=== PATIENT | male | born 2000 | race Caucasian/White ===

== ENCOUNTER 2024-11-20 15:09 | Emergency (ER) | payer SELFPAY ==
[2024-11-20 15:11] VITALS: BP 152/98; PULSE 87; RESP 18; TEMP 36.4; O2SAT 100; BMI 40.4
--- NOTE | 2024-11-20 15:25 | EX.ED.DYSGE1 ---
HPI History of Present Illness Chief Complaint: Abd Pain [facility] Medical History (Updated 11/20/24 @ 15:27 by Phuong Barker) Enlargement, spleen Home Medications ?Medication ?Instructions ?Recorded ?Last Taken ?Type ondansetron 4 mg disintegrating 4 mg PO Q8H PRN PRN Nausea #10 tabs 11/20/24 Unknown Rx tablet pantoprazole 20 mg tablet,delayed 20 mg PO DAILY #60 tabs 11/20/24 Unknown Rx release (Protonix) sucralfate 1 gram tablet (Carafate) 1 g PO BID PRN abdominal pain #14 11/20/24 Unknown Rx tabs Allergy/AdvReac Type Severity Reaction Status Date / Time diphenhydramine (From Allergy Other Verified 11/20/24 15:11 Benadryl) naproxen Allergy Hives Verified 11/20/24 15:11 tramadol Allergy Hives Verified 11/20/24 15:11 Surgical History no surgical history Social History Smoking Status: Never smoker EXAM Physical Exam Const Vital Signs: 11/20/24 15:11 11/20/24 16:41 Temperature 97.6 F L 97.6 F L Temperature Source Oral Pulse Rate 87 87 Respiratory Rate 18 18 Blood Pressure 152/98 H 136/89 H Blood Pressure Mean 116 104 Pulse Ox 100 100 Oxygen Delivery Method Room Air MDM MDM MDM Narrative Medical decision making narrative: HISTORY OF PRESENT ILLNESS: 24year old male presents with abdominal pain. Notes symptoms have been ongoing for 2 weeks. He further states he is having 2 weeks of epigastric and left upper quadrant abdominal pain. States he has been seen multiple times at outside facility. States he was seen most recently last night and received a CT scan and a lab evaluation. He stated the doctor there told him that nothing was wrong. He asked the doctor at that time if there is anything he can take at home the doctor said no. He states he has a GI appointment in January but cannot wait that long secondary to ongoing pain. He notes he has not eaten much in the last few days. He denies pain getting worse with food. Denies alcohol use. Denies history of any abdominal surgeries. Denies vomiting. Denies fever. Denies melena or hematochezia. Denies urinary complaints. Denies chest pain or shortness of breath. Denies recent illness REVIEW OF SYSTEMS: All other systems reviewed and are negative except as noted in the history of present illness. At least 10 review of systems reviewed and are negative except as noted in history of present illness. PHYSICAL EXAM: Nursing triage notes reviewed, Vital signs reviewed Constitutional: please see [facility] HENT: MMM Eyes: Pupils equal round and reactive to light, Extraocular muscles intact Neck: No stridor, no JVD, full neck ROM Lungs: Clear to auscultation, No wheezing or rales. No increased work of breathing, no conversational dyspnea, no accessory muscle use, no nasal flaring. No respiratory distress noted Heart: Regular rate and rhythm, No murmurs, No rubs and No gallops, 2+ distal pulses (radial, femoral, posterior tibial) in all extremities Abdomen: Soft, epigastric left upper quadrant TTP, no rigidity, rebound or guarding, no obvious peritoneal signs, no palpable pulsatile abdominal masses, no auscultated abdominal bruit : No CVAT Extremities: No edema Neuro: No focal neurological deficits, cranial nerves II through XII intact, 5/5 strength in all extremities. Intact sensation to light touch in all extremities, 2+ reflexes bilateral patella tendons. Normal gait. No ataxia. Skin: No rash or lesions noted MEDICAL DECISION MAKING: Chief Complaint: abdominal pain External records reviewed: Reviewed prior imaging studies: No recent advanced imaging of the abdomen or pelvis noted in the chart Reviewed the patient's personal medical record on his cell phone. This showed a CBC, CMP, lipase, urinalysis and a CT scan was performed on 11/19/2024 at approximately 8 PM. These labs were unremarkable including for signs of systemic inflammation with no elevation his white blood cell count. He had no significant anemia. He had no elevation of his lipase to suggest pancreatitis. His urine was not infectious. His CT scan of his abdomen showed evidence of gastritis and splenomegaly Factors affecting care: none reported Social determinants of health: Denies recent alcohol use History obtained from others: none Consults: none [facility] Narrative: The patient was initially hemodynamically stable, afebrile, saturating under percent room air. Abdominal exam was benign with epigastric and left upper quadrant TTP consistent with likely gastritis. I considered the following differential diagnosis: AAA, small bowel obstruction, abdominal perforation, appendicitis, pancreatitis, hepatobiliary pathology (acute cholecystitis), mesenteric ischemia, abnormalities such as pyelonephritis, nephrolithiasis I considered obtaining a broad lab and imaging workup however the patient had a similar workup less than 24 hours ago that showed no acute findings. I do not think additional labs or images are indicated at this time. I suspect the etiology of his symptoms are related to gastritis. Provided him with symptomatic relief and the emergency room in the form of pantoprazole, Zofran, GI cocktail, Carafate. Will discharge patient with prescriptions for Protonix, Carafate and a GI follow-up return precautions were discussed. I see nothing that would suggest an acute abdomen at this time. Based on history physical exam, risk factors, my suspicion for bowel obstruction, incarcerated hernia, perforated viscus, acute cholecystitis, appendicitis is very low. There is no evidence of peritonitis sepsis or toxicity at this time. I feel the patient can be managed as an outpatient with follow-up with her/his primary physician in the next 24 to 48 hours or soon as possible. Instructions have been given for the patient to return to the ED for worsening pain, anorexia, high fevers, intractable vomiting or bleeding. The patient and/or family, caregivers express understanding. The patient and/or family, caregivers agrees with the plan. Total critical care time today provided was at least 0 minutes. This excludes separately billable procedures. Critical care time (if documented) is secondary to the patient having high probability of clinically significant/life threatening deterioration in the patient's condition which required my urgent intervention. Shared decision making: I will have a discussion with the patient and or visitors regarding risk/benefits of further testing or admission. They will be made aware of of the risk/benefits inherent in this decision they will be given the opportunity to voice understanding. Impression: 1. Epigastric abdominal pain Disposition: Discharge home Tato Caballero DO This note was generated with [employer] dictation software. It may contain incorrect words, spelling, and punctuation that were not noted in review of the chart prior to signing. Discharge Plan Triage Chief Complaint: Abd Pain ED Provider: Tato Caballero Dx/Rx/DC Orders Instructions: ED Gastritis (Adult) Prescriptions: New pantoprazole [Protonix] 20 mg tablet,delayed release (DR/EC) 20 mg PO DAILY Qty: 60 0RF ondansetron 4 mg tablet,disintegrating 4 mg PO Q8H PRN PRN (Reason: Nausea) Qty: 10 0RF sucralfate [Carafate] 1 gram tablet 1 g PO BID PRN (Reason: abdominal pain) Qty: 14 0RF Primary Care Provider: Care Physician,No Primary Referrals: Juno Vitale DO [Med Staff - Active Staff] - Activity Restrictions/Additional Instructions: Thank you for trusting us with your care today! Based on your history physical exam and lab and imaging review from your recent ER visit yesterday you are likely suffering from gastritis. There is inflammation of the stomach. This is treated with oral acid reducing medicines such as Protonix. A prescription for Protonix has been written. Please begin taking daily. You can augment your pain control with Carafate which can be used as needed. Please take Zofran as needed for nausea and vomiting control Please take Tylenol (2 pills, 650 mg), every 6 hours as needed for pain and fever control. Please refrain from taking NSAIDs. Please refrain from using alcohol as this can worsen gastritis Please return to the emergency department if your symptoms change or worsen. Please follow with Gastroenterology (Dr. Vitale) for further outpatient evaluation and management. Print Language: [place] Disposition Disposition: Home, Self Care Discharge Date/Time: 11/20/24 16:45
[2024-11-20] MEDS: Ondansetron 4 MG/2 ML Vial IV (15:51)
[2024-11-20] MEDS: Lidocaine 2% Viscous15 ML UDC 15 ML PO (15:51)
[2024-11-20] MEDS: Mag Hydrox/Al Hydrox/Simeth 30 ML UDC PO (15:51)
[2024-11-20] MEDS: Sucralfate 1 GM Tablet PO (16:12)
[2024-11-20] MEDS: Famotidine 200 MG/20 ML MDV 20 MG in 0.9% Normal Saline (Pres. free 8 ML 300 MG IV (16:13)
[2024-11-20] MEDS: Pantoprazole Sodium 40 MG in 0.9% Normal Saline (100mL MB+) 100 ML 300 MG IVPB (16:13)
[2024-11-20 16:41] VITALS: BP 136/89; PULSE 87; RESP 18; TEMP 36.4; O2SAT 100
== END 2024-11-20 16:45 | disposition home or self-care (01) ==
PROVIDERS: Emergency Provider Emergency Medicine; Visit Provider Emergency Medicine
DX: R10.13 Epigastric pain (principal)
CPT/HCPCS: 96365; 96375; 99283; A4216; J2405